=== PATIENT | male | born 1985 | race Caucasian/White ===

== ENCOUNTER 2022-12-29 12:36 | Emergency (ER) | payer BC ==
[2022-12-29 13:24] LABS: CARBON DIOXIDE,CO2 26.7 mmol/L (21.0-32.0); POTASSIUM,K 3.7 mmol/L (3.5-5.1)
[2022-12-29 13:49] LABS: CORONAVIRUS COVID-19 NAA NEGATIVE (NEGATIVE); INFLUENZA A NAA NEGATIVE (NEGATIVE); INFLUENZA B NAA NEGATIVE (NEGATIVE); RESPIRATORY SYNCYTIAL VIR NAA NEGATIVE (NEGATIVE)
== END 2022-12-29 17:04 | disposition home or self-care (01) ==
LOC: MW.ED 12:36
DX: R07.89 Other chest pain (principal); Z20.822 Contact with and (suspected) exposure to COVID-19
CPT/HCPCS: 0241U; 36415; 71045; 80053; 83690; 84484; 85025; 85379; 93005; 99285; 99283

== ENCOUNTER 2023-12-29 12:42 | Emergency (ER) | payer BC ==
[2023-12-29] MEDS ORDERED: Lidocaine 2% 5 ML SDV INJECT ONE (13:21)
[2023-12-29] MEDS ORDERED: Diphtheria,Pertussis(Acell),Tetanus Vaccine 0.5 ML Syringe IM ONE (13:22)
== END 2023-12-29 14:12 | disposition home or self-care (01) ==
LOC: MW.ED 12:42
DX: S61.211A Laceration without foreign body of left index finger without damage to nail, initial encounter (principal); W26.8XXA Contact with other sharp object(s), not elsewhere classified, initial encounter
CPT/HCPCS: 12001; 90471; 90715; 99282-25; 99283; J3490